=== PATIENT | male | born 1980 | race Caucasian/White ===

== ENCOUNTER 2021-05-01 05:22 | Inpatient (IN) ==
[2021-05-01] MEDS ORDERED: SODIUM CHLORIDE 0.9% 2,000 ML IV STA (06:11)
[2021-05-01] MEDS ORDERED: ONDANSETRON 4 MG/2 ML VIAL IV STA (06:11)
[2021-05-01] MEDS ORDERED: HYDROmorphone 2 MG/1 ML VIAL IV STA (06:11)
[2021-05-01] MEDS ORDERED: LEVOFLOXACIN INJ 500 MG/100 ML PREMIX IV ONE (07:01)
[2021-05-01] MEDS ORDERED: metroNIDAZOLE INJ 500 MG/100 ML PREMIX IV ONE (07:01)
[2021-05-01] MEDS ORDERED: propofoL 200 MG/20 ML VIAL IV ONE (07:55)
[2021-05-01] MEDS ORDERED: fentaNYL 100 MCG/2 ML VIAL ONE (07:55)
[2021-05-01] MEDS ORDERED: ROCURONIUM 50 MG/5 ML VIAL IV ONE (07:55)
[2021-05-01] MEDS ORDERED: LIDOCAINE 2% 5 ML VIAL ONE (07:55)
[2021-05-01] MEDS ORDERED: BUPIVACAINE MPF 0.25% 30 ML VIAL ONE (07:55)
[2021-05-01] MEDS ORDERED: MIDAZOLAM 2 MG/2 ML VIAL ONE (07:55)
[2021-05-01] MEDS ORDERED: SUCCINYLCHOLINE 200 MG/10 ML VIAL ONE (07:55)
[2021-05-01] MEDS ORDERED: LIDOCAINE 1%/EPI INJ 20 ML VIAL ONE (07:56)
[2021-05-01] MEDS: LACTATED RINGERS 1,000 ML IV SCH (09:15)
[2021-05-01 09:29] LABS: Basophils % 0.2 % (0.0-0.8); Eosinophils # 0.2 10*3/uL (0.0-0.87); Eosinophils % 1.4 % (0.00-10.9); Hematocrit 46.4 VOL% (42.0-52.0); Hemoglobin 15.3 GM/DL (14.0-18.0); Immature Granulocytes % 0.3 %; Immature Granulocytes Absolute 0.04 #; Lymphocytes # 2.4 10*3/uL (1.4-4.0); Mean Corpuscular Volume 91.7 FL (87-102); Mean Platelet Volume 10.6 FL (9.6-12.0); Monocytes % 6.5 % (1.7-12.7); Neutrophils % 73.6 % (38.7-73.9); Platelet Count 297 T/CUMM (130-400); Red Blood Count 5.06 MC/CUMM (3.8-5.5); Red Cell Distribution Width 13.7 % (9.3-17.3); White Blood Count 13.2 T/CUMM (4-12)
[2021-05-01 09:48] LABS: Alanine Aminotransferase 26 U/L (16-61); Albumin 3.1 G/DL (3.4-5.0); Alkaline Phosphatase 45 U/L (45-117); Aspartate Amino Transferase 12 U/L (0-37); Bilirubin,Total < 0.39 MG/DL (0.2-1.0); Blood Urea Nitrogen 9 MG/DL (7-18); Carbon Dioxide 26 MMOL/L (21-32); Estimated Glom Filtration Rate 160 ML/MIN; Glucose 85 MG/DL (74-106); Osmolality,Calculated 272.7 MOS/KG (273-304); Potassium 4.3 MMOL/L (3.5-5.1); Sodium 138 MMOL/L (136-145); Total Protein 6.8 G/DL (6.4-8.2)
[2021-05-01] MEDS ORDERED: SEVOFLURANE 1 UNIT/15 MINUTE INH ONE ×7 (09:55→11:42)
[2021-05-01] MEDS ORDERED: DEXAMETHASONE 4 MG/1 ML VIAL ONE (09:55)
[2021-05-01] MEDS ORDERED: ONDANSETRON 4 MG/2 ML VIAL ONE (09:55)
[2021-05-01] MEDS ORDERED: ACETAMINOPHEN INJ 1,000 MG/100 ML VIAL IV ONE (10:03)
[2021-05-01] MEDS ORDERED: GLYCOPYRROLATE 0.4 MG/2 ML VIAL ONE (11:42)
[2021-05-01] MEDS ORDERED: NEOSTIGMINE 10 MG/10 ML VIAL ONE (11:42)
[2021-05-01] MEDS ORDERED: ONDANSETRON 4 MG/2 ML VIAL IV PRN ×2 (11:49→12:17)
[2021-05-01] MEDS ORDERED: HYDROmorphone 2 MG/1 ML VIAL ONE (12:16)
[2021-05-01] MEDS: HYDROmorphone 2 MG/1 ML VIAL IV PRN ×3 (12:19→12:29)
[2021-05-01 12:33] LABS: Bilirubin,Urine Negative (Negative); Blood, Urine Negative (Negative); Glucose,Urine (UA) Negative (Negative); Ketones,Urine Negative (Negative); Mucus,Urine Moderate /LPF (Occasional); Nitrite,Urine Negative (Negative); Protein,Urine 30 MG/DL; RBC,Urine 1 /HPF (0-4); Squamous Epithelial Cell,Urine Occasional /HPF (0-10); Urine Appearance CLEAR (Clear); Urine Color Yellow (Yellow); Urine Specific Gravity > 1.035 (1.001-1.035); Urine Urobilinogen < 2.0 EU/DL (0.2-1.0)
[2021-05-01] MEDS: DEXTROSE 5% LACTATED RINGERS 1,000 ML IV SCH ×2 (14:14→20:17)
[2021-05-01] MEDS: MORPHINE 4 MG/1 ML VIAL IV PRN ×3 (14:14→22:24)
[2021-05-02] MEDS: MORPHINE 4 MG/1 ML VIAL IV PRN ×4 (03:10→19:57)
[2021-05-02 04:57] LABS: Basophils % 0.1 % (0.0-0.8); Eosinophils # 0.1 10*3/uL (0.0-0.87); Eosinophils % 0.4 % (0.00-10.9); Hematocrit 40.8 VOL% (42.0-52.0); Hemoglobin 13.6 GM/DL (14.0-18.0); Immature Granulocytes % 0.3 %; Immature Granulocytes Absolute 0.04 #; Lymphocytes # 1.6 10*3/uL (1.4-4.0); Lymphocytes % 10.5 % (21.2-54.2); Mean Corpuscular HGB Conc 33.3 GM/DL (32-36); Mean Corpuscular Volume 90.5 FL (87-102); Mean Platelet Volume 10.6 FL (9.6-12.0); Neutrophils % 83.7 % (38.7-73.9); Platelet Count 288 T/CUMM (130-400); Red Blood Count 4.51 MC/CUMM (3.8-5.5); Red Cell Distribution Width 13.6 % (9.3-17.3); White Blood Count 14.8 T/CUMM (4-12)
[2021-05-02 05:46] LABS: Albumin 3.1 G/DL (3.4-5.0); Bilirubin,Total 1.1 MG/DL (0.2-1.0); Osmolality,Calculated 278.3 MOS/KG (273-304); Potassium 3.5 MMOL/L (3.5-5.1); Total Protein 6.6 G/DL (6.4-8.2)
[2021-05-02] MEDS: ENOXAPARIN 40 MG/0.4 ML SYRINGE SUBCUT SCH (06:11)
[2021-05-02] MEDS: DEXTROSE 5% LACTATED RINGERS 1,000 ML IV SCH ×3 (06:11→20:01)
[2021-05-02] MEDS: PANTOPRAZOLE 40 MG TABLET PO SCH (08:50)
[2021-05-02] MEDS: levETIRAcetam 500 MG TABLET PO SCH (08:51)
[2021-05-02] MEDS: LACTATED RINGERS 1,000 ML IV SCH (08:52)
[2021-05-03] MEDS: MORPHINE 4 MG/1 ML VIAL IV PRN ×5 (01:06→22:33)
[2021-05-03] MEDS: DEXTROSE 5% LACTATED RINGERS 1,000 ML IV SCH ×3 (03:08→20:42)
[2021-05-03] MEDS: ENOXAPARIN 40 MG/0.4 ML SYRINGE SUBCUT SCH (04:50)
[2021-05-03] MEDS: LACTATED RINGERS 1,000 ML IV SCH (09:18)
[2021-05-03] MEDS ORDERED: MAGNESIUM HYDROXIDE SUSP 30 ML UDCUP PO ONE (09:22)
[2021-05-03] MEDS: levETIRAcetam 500 MG TABLET PO SCH (09:26)
[2021-05-03] MEDS: PANTOPRAZOLE 40 MG TABLET PO SCH (09:26)
[2021-05-04] MEDS: MORPHINE 4 MG/1 ML VIAL IV PRN ×3 (02:57→11:48)
[2021-05-04] MEDS: ENOXAPARIN 40 MG/0.4 ML SYRINGE SUBCUT SCH (05:04)
[2021-05-04] MEDS: DEXTROSE 5% LACTATED RINGERS 1,000 ML IV SCH (05:05)
[2021-05-04] MEDS: levETIRAcetam 500 MG TABLET PO SCH (08:59)
[2021-05-04] MEDS: LACTATED RINGERS 1,000 ML IV SCH (08:59)
[2021-05-04] MEDS: PANTOPRAZOLE 40 MG TABLET PO SCH (08:59)
[2021-05-04 11:42] VITALS: BP 167/99
== END 2021-05-04 15:40 | disposition home or self-care (01) | DRG 337 ==
LOC: EDUNIT# → EDBD → N.ED 05:22 → N.3E 11:49
PROVIDERS: ADMIT Surgery; ATTEND Surgery

== ENCOUNTER 2021-07-20 13:58 | Inpatient (IN) ==
[2021-07-20] MEDS ORDERED: ONDANSETRON 4 MG/2 ML VIAL IV STA (14:13)
[2021-07-20] MEDS ORDERED: SODIUM CHLORIDE 0.9% 1,000 ML IV STA (14:13)
[2021-07-20] MEDS ORDERED: PANTOPRAZOLE 40 MG VIAL IV STA (14:13)
[2021-07-20 15:04] LABS: Basophils # 0.1 10*3/uL (0.0-0.2); Basophils % 0.3 % (0.0-0.8); Eosinophils # 0.2 10*3/uL (0.0-0.87); Eosinophils % 1.4 % (0.00-10.9); Hematocrit 46.5 VOL% (42.0-52.0); Hemoglobin 15.1 GM/DL (14.0-18.0); Immature Granulocytes % 0.3 %; Immature Granulocytes Absolute 0.05 #; Lymphocytes # 1.4 10*3/uL (1.4-4.0); Mean Corpuscular HGB Conc 32.5 GM/DL (32-36); Mean Corpuscular Volume 92.3 FL (87-102); Mean Platelet Volume 10.7 FL (9.6-12.0); Monocytes % 9.6 % (1.7-12.7); Neutrophils % 79.4 % (38.7-73.9); Platelet Count 271 T/CUMM (130-400); Red Blood Count 5.04 MC/CUMM (3.8-5.5); Red Cell Distribution Width 14.6 % (9.3-17.3); White Blood Count 15.2 T/CUMM (4-12)
[2021-07-20 15:18] LABS: PT Patient Result 11.4 SECS (10.5-12.0)
[2021-07-20 15:33] LABS: Alanine Aminotransferase 11 U/L (16-61); Albumin 2.9 G/DL (3.4-5.0); Alkaline Phosphatase 47 U/L (45-117); Aspartate Amino Transferase 7 U/L (0-37); Bilirubin,Total < 0.39 MG/DL (0.20-1.00); Blood Urea Nitrogen 59 MG/DL (7-18); Calcium 7.2 MG/DL (8.5-10.1); Carbon Dioxide 13 MMOL/L (21-32); Estimated Glom Filtration Rate 7 ML/MIN; Glucose 103 MG/DL (74-106); Osmolality,Calculated 282.4 MOS/KG (273-304); Potassium 3.9 MMOL/L (3.5-5.1); Sodium 133 MMOL/L (136-145); Total Protein 6.9 G/DL (6.4-8.2)
[2021-07-20] MEDS ORDERED: MORPHINE 2 MG/1 ML SYRINGE IV STA (17:13)
[2021-07-20] MEDS ORDERED: MORPHINE 2 MG/1 ML SYRINGE ONE (17:16)
[2021-07-20] MEDS ORDERED: GLUCAGON 1 MG VIAL IM PRN (18:05)
[2021-07-20] MEDS ORDERED: ONDANSETRON 4 MG/2 ML VIAL IV PRN (18:05)
[2021-07-20] MEDS ORDERED: ACETAMINOPHEN 325 MG TABLET PO PRN (18:05)
[2021-07-20] MEDS ORDERED: DEXTROSE 50% 25 GM/50 ML VIAL IV PRN (18:05)
[2021-07-20] MEDS ORDERED: NICOTINE 21 MG/24 HR PATCH TRANSDERM PRN (18:17)
[2021-07-20] MEDS: GABAPENTIN 400 MG CAPSULE PO SCH (21:27)
[2021-07-20] MEDS: SODIUM BICARB INJ 100 MEQ in SODIUM CHLORIDE 0.9% 1,000 ML IV SCH (21:28)
[2021-07-20] MEDS ORDERED: INFLUENZA VIRUS VACCINE 0.5 ML SYRINGE IM ONE (23:34)
[2021-07-21 05:40] LABS: Barbiturates Screen,Urine Negative (Negative); Benzodiazepines Screen,Urine Negative (Negative); Cannabinoid Screen,Urine Negative (Negative); Opiate Screen,Urine Negative (Negative); Phencyclidine Screen,Urine Negative (Negative)
[2021-07-21 05:41] LABS: Bilirubin,Urine Negative (Negative); Blood, Urine Small mg/dL (Negative); Glucose,Urine (UA) Negative (Negative); Ketones,Urine Negative (Negative); Mucus,Urine Occasional /LPF (Occasional); Nitrite,Urine Negative (Negative); Protein,Urine 30 MG/DL; Squamous Epithelial Cell,Urine Occasional /HPF (0-10); Urine Appearance Slightly Hazy (Clear); Urine Color Yellow (Yellow); Urine Specific Gravity 1.014 (1.001-1.035); Urine Urobilinogen < 2.0 EU/DL (0.2-1.0)
[2021-07-21] MEDS: SODIUM BICARB INJ 100 MEQ in SODIUM CHLORIDE 0.9% 1,000 ML IV SCH (05:44)
[2021-07-21 06:13] LABS: Basophils # 0.1 10*3/uL (0.0-0.2); Basophils % 0.5 % (0.0-0.8); Eosinophils # 0.3 10*3/uL (0.0-0.87); Eosinophils % 2.1 % (0.00-10.9); Hematocrit 41.1 VOL% (42.0-52.0); Hemoglobin 13.4 GM/DL (14.0-18.0); Immature Granulocytes % 0.5 %; Immature Granulocytes Absolute 0.07 #; Lymphocytes % 15.1 % (21.2-54.2); Mean Corpuscular HGB Conc 32.6 GM/DL (32-36); Mean Corpuscular Volume 93.6 FL (87-102); Monocytes % 10.5 % (1.7-12.7); Neutrophils % 71.3 % (38.7-73.9); Platelet Count 236 T/CUMM (130-400); Red Blood Count 4.39 MC/CUMM (3.8-5.5); Red Cell Distribution Width 14.6 % (9.3-17.3); White Blood Count 13.3 T/CUMM (4-12)
[2021-07-21 06:29] LABS: Calcium 7.7 MG/DL (8.5-10.1); Osmolality,Calculated 293.7 MOS/KG (273-304); Potassium 3.9 MMOL/L (3.5-5.1); Risk Ratio 4.97; Thyroid Stimulating Hormone 0.419 uIU/ml (0.358-3.74); VLDL Cholesterol 59.2 MG/DL
[2021-07-21] MEDS: GABAPENTIN 400 MG CAPSULE PO SCH ×4 (09:37→20:48)
[2021-07-21] MEDS: PANTOPRAZOLE 40 MG TABLET PO SCH (09:37)
[2021-07-21] MEDS: LORazepam 0.5 MG TABLET PO PRN ×2 (09:37→20:48)
[2021-07-21] MEDS: SODIUM BICARB INJ 100 MEQ in SODIUM CHLORIDE 0.45% 1,000 ML IV SCH ×2 (12:21→22:31)
[2021-07-21] MEDS ORDERED: PHENYLEPH/MINERAL OIL/PETROLAT 57 GM TUBE TOP PRN (17:51)
[2021-07-21] MEDS ORDERED: HYDROCORTISONE 2.5% RECTAL CREAM 30 GM TUBE TOP PRN (18:32)
[2021-07-21] MEDS: PHENYLEPHRINE 0.25% SUPP RECTAL SCH (20:48)
[2021-07-22 05:35] LABS: Basophils # 0.1 10*3/uL (0.0-0.2); Basophils % 0.7 % (0.0-0.8); Eosinophils # 0.3 10*3/uL (0.0-0.87); Eosinophils % 2.8 % (0.00-10.9); Hemoglobin 13.2 GM/DL (14.0-18.0); Immature Granulocytes % 0.2 %; Immature Granulocytes Absolute 0.02 #; Lymphocytes # 2.2 10*3/uL (1.4-4.0); Lymphocytes % 20.2 % (21.2-54.2); Mean Corpuscular Volume 91.7 FL (87-102); Mean Platelet Volume 11.1 FL (9.6-12.0); Monocytes % 13.5 % (1.7-12.7); Neutrophils % 62.6 % (38.7-73.9); Platelet Count 247 T/CUMM (130-400); Red Blood Count 4.36 MC/CUMM (3.8-5.5); Red Cell Distribution Width 14.1 % (9.3-17.3)
[2021-07-22 05:55] LABS: Calcium 8.6 MG/DL (8.5-10.1); Osmolality,Calculated 293.1 MOS/KG (273-304); Potassium 3.6 MMOL/L (3.5-5.1)
[2021-07-22] MEDS: BISACODYL 5 MG TABLET PO SCH ×2 (07:30→16:27)
[2021-07-22] MEDS: PHENYLEPHRINE 0.25% SUPP RECTAL SCH ×2 (08:24→20:15)
[2021-07-22] MEDS: GABAPENTIN 400 MG CAPSULE PO SCH ×4 (08:25→20:15)
[2021-07-22] MEDS: PANTOPRAZOLE 40 MG TABLET PO SCH (08:25)
[2021-07-22] MEDS: LORazepam 0.5 MG TABLET PO PRN ×2 (08:25→17:11)
[2021-07-22] MEDS ORDERED: metroNIDAZOLE INJ 500 MG/100 ML PREMIX IV ONE (08:59)
[2021-07-22] MEDS ORDERED: LEVOFLOXACIN INJ 500 MG/100 ML PREMIX IV ONE (08:59)
[2021-07-22] MEDS: SODIUM BICARB INJ 50 MEQ in SODIUM CHLORIDE 0.45% 1,000 ML IV SCH (10:20)
[2021-07-22] MEDS ORDERED: fentaNYL 100 MCG/2 ML VIAL ONE (10:45)
[2021-07-22] MEDS ORDERED: LIDOCAINE 2% 5 ML VIAL ONE ×2 (10:45→12:13)
[2021-07-22] MEDS ORDERED: SEVOFLURANE 1 UNIT/15 MINUTE INH ONE (10:45)
[2021-07-22] MEDS ORDERED: MIDAZOLAM 2 MG/2 ML VIAL ONE (10:45)
[2021-07-22] MEDS ORDERED: propofoL 200 MG/20 ML VIAL IV ONE ×2 (10:45→12:13)
[2021-07-22] MEDS ORDERED: LIDOCAINE 1%/EPI INJ 20 ML VIAL ONE (10:54)
[2021-07-22] MEDS ORDERED: BUPIVACAINE MPF 0.25% 30 ML VIAL ONE (10:54)
[2021-07-22] MEDS ORDERED: LACTATED RINGERS 1,000 ML IV SCH (12:00)
[2021-07-22] MEDS ORDERED: HYDROmorphone 2 MG/1 ML VIAL IV PRN (13:41)
[2021-07-22] MEDS: HYDROmorphone 2 MG/1 ML VIAL IV PRN ×3 (15:00→20:06)
[2021-07-22] MEDS ORDERED: POLYETHYLENE GLYCOL 3350/ELECTROLYTES 4,000 ML BOTTLE PO ONE (18:00)
[2021-07-22] MEDS: POLYETHYLENE GLYCOL POWDER 17 GM PACK PO SCH (20:15)
[2021-07-22] MEDS ORDERED: MAGNESIUM CITRATE 300 ML BOTTLE PO ONE (21:00)
[2021-07-23] MEDS: HYDROmorphone 2 MG/1 ML VIAL IV PRN ×6 (00:01→20:27)
[2021-07-23] MEDS: LORazepam 0.5 MG TABLET PO PRN ×4 (00:01→19:20)
[2021-07-23] MEDS: SODIUM BICARB INJ 50 MEQ in SODIUM CHLORIDE 0.45% 1,000 ML IV SCH ×2 (06:35→15:57)
[2021-07-23 08:27] LABS: Basophils # 0.1 10*3/uL (0.0-0.2); Basophils % 0.7 % (0.0-0.8); Eosinophils # 0.5 10*3/uL (0.0-0.87); Eosinophils % 5.6 % (0.00-10.9); Hematocrit 39.7 VOL% (42.0-52.0); Hemoglobin 13.1 GM/DL (14.0-18.0); Immature Granulocytes % 0.3 %; Immature Granulocytes Absolute 0.03 #; Lymphocytes # 1.9 10*3/uL (1.4-4.0); Lymphocytes % 21.7 % (21.2-54.2); Mean Corpuscular Volume 91.7 FL (87-102); Mean Platelet Volume 10.5 FL (9.6-12.0); Monocytes % 10.3 % (1.7-12.7); Neutrophils % 61.4 % (38.7-73.9); Platelet Count 265 T/CUMM (130-400); Red Blood Count 4.33 MC/CUMM (3.8-5.5)
[2021-07-23] MEDS: GABAPENTIN 400 MG CAPSULE PO SCH ×4 (08:35→20:32)
[2021-07-23] MEDS: POLYETHYLENE GLYCOL POWDER 17 GM PACK PO SCH ×3 (08:35→20:33)
[2021-07-23] MEDS: PANTOPRAZOLE 40 MG TABLET PO SCH (08:35)
[2021-07-23] MEDS: TAMSULOSIN 0.4 MG CAPSULE PO SCH ×2 (08:35→20:33)
[2021-07-23] MEDS: PHENYLEPHRINE 0.25% SUPP RECTAL SCH (09:31)
[2021-07-24] MEDS: HYDROmorphone 2 MG/1 ML VIAL IV PRN ×2 (00:03→03:58)
[2021-07-24] MEDS: LORazepam 0.5 MG TABLET PO PRN (00:05)
[2021-07-24] MEDS: SODIUM BICARB INJ 50 MEQ in SODIUM CHLORIDE 0.45% 1,000 ML IV SCH ×2 (05:44→06:59)
[2021-07-24] MEDS: TAMSULOSIN 0.4 MG CAPSULE PO SCH (08:42)
[2021-07-24] MEDS: PANTOPRAZOLE 40 MG TABLET PO SCH (08:42)
[2021-07-24] MEDS: GABAPENTIN 400 MG CAPSULE PO SCH (08:42)
[2021-07-24] MEDS: POLYETHYLENE GLYCOL POWDER 17 GM PACK PO SCH (08:42)
[2021-07-24 11:30] VITALS: BP 157/90
[2021-07-24] MEDS ORDERED: DOCUSATE SODIUM 100 MG CAPSULE PO SCH (21:00)
== END 2021-07-24 12:11 | disposition home or self-care (01) | DRG 347 ==
LOC: EDUNIT# → EDBD → N.ED 13:58 → SUATTDRO 18:05 → N.EDINP 18:05 → N.5E 19:47
PROVIDERS: ADMIT Internal Medicine; ATTEND Hospitalist

== ENCOUNTER 2021-10-20 16:49 | Observation (INO) ==
[2021-10-20] MEDS ORDERED: SODIUM CHLORIDE 0.9% 1,000 ML IV STA (20:04)
[2021-10-20] MEDS ORDERED: ONDANSETRON 4 MG/2 ML VIAL IV STA (20:04)
[2021-10-20] MEDS ORDERED: HYDROmorphone 2 MG/1 ML VIAL IV STA ×2 (20:04→23:02)
[2021-10-20 20:42] LABS: Basophils # 0.1 10*3/uL (0.0-0.2); Basophils % 1.1 % (0.0-0.8); Eosinophils # 0.4 10*3/uL (0.0-0.87); Eosinophils % 4.3 % (0.00-10.9); Hematocrit 48.8 VOL% (42.0-52.0); Hemoglobin 16.2 GM/DL (14.0-18.0); Immature Granulocytes % 0.2 %; Immature Granulocytes Absolute 0.02 #; Lymphocytes # 2.8 10*3/uL (1.4-4.0); Lymphocytes % 34.2 % (21.2-54.2); Mean Corpuscular HGB Conc 33.2 GM/DL (32-36); Mean Corpuscular Volume 89.9 FL (87-102); Mean Platelet Volume 10.2 FL (9.6-12.0); Monocytes % 8.1 % (1.7-12.7); Neutrophils % 52.1 % (38.7-73.9); Platelet Count 288 T/CUMM (130-400); Red Blood Count 5.43 MC/CUMM (3.8-5.5); Red Cell Distribution Width 13.9 % (9.3-17.3); White Blood Count 8.1 T/CUMM (4-12)
[2021-10-20 20:59] LABS: Alanine Aminotransferase 31 U/L (16-61); Albumin 3.7 G/DL (3.4-5.0); Alkaline Phosphatase 56 U/L (45-117); Aspartate Amino Transferase 11 U/L (0-37); Bilirubin,Total < 0.39 MG/DL (0.20-1.00); Blood Urea Nitrogen 7 MG/DL (7-18); Calcium 9.4 MG/DL (8.5-10.1); Carbon Dioxide 24 MMOL/L (21-32); Estimated Glom Filtration Rate 161 ML/MIN; Glucose 85 MG/DL (74-106); Osmolality,Calculated 275.4 MOS/KG (273-304); Potassium 3.8 MMOL/L (3.5-5.1); Sodium 140 MMOL/L (136-145); Total Protein 7.7 G/DL (6.4-8.2)
[2021-10-20 22:04] LABS: Bilirubin,Urine Negative (Negative); Blood, Urine Negative (Negative); Glucose,Urine (UA) Negative (Negative); Ketones,Urine Negative (Negative); Mucus,Urine Occasional /LPF (Occasional); Nitrite,Urine Negative (Negative); Protein,Urine Negative; RBC,Urine <1 /HPF (0-4); Squamous Epithelial Cell,Urine Occasional /HPF (0-10); Urine Appearance CLEAR (Clear); Urine Color Straw (Yellow); Urine Specific Gravity > 1.060 (1.001-1.035); Urine Urobilinogen < 2.0 EU/DL (<2.0)
[2021-10-20] MEDS ORDERED: ONDANSETRON 4 MG/2 ML VIAL IV ONE (23:02)
[2021-10-20] MEDS ORDERED: ACETAMINOPHEN 325 MG TABLET PO PRN (23:42)
[2021-10-20] MEDS ORDERED: ONDANSETRON 4 MG/2 ML VIAL IV PRN (23:42)
[2021-10-20] MEDS ORDERED: GABAPENTIN 600 MG TABLET PO PRN (23:45)
[2021-10-21] MEDS: LACTATED RINGERS 1,000 ML IV SCH ×2 (01:22→07:45)
[2021-10-21] MEDS: HYDROmorphone 2 MG/1 ML VIAL IV PRN ×2 (03:57→08:34)
[2021-10-21 03:58] LABS: Basophils # 0.1 10*3/uL (0.0-0.2); Basophils % 1.1 % (0.0-0.8); Eosinophils # 0.4 10*3/uL (0.0-0.87); Eosinophils % 5.5 % (0.00-10.9); Hematocrit 47.7 VOL% (42.0-52.0); Hemoglobin 15.6 GM/DL (14.0-18.0); Immature Granulocytes % 0.3 %; Immature Granulocytes Absolute 0.02 #; Lymphocytes # 2.7 10*3/uL (1.4-4.0); Lymphocytes % 37.8 % (21.2-54.2); Mean Corpuscular HGB Conc 32.7 GM/DL (32-36); Mean Corpuscular Volume 91.4 FL (87-102); Mean Platelet Volume 10.4 FL (9.6-12.0); Monocytes % 7.5 % (1.7-12.7); Neutrophils % 47.8 % (38.7-73.9); Platelet Count 279 T/CUMM (130-400); Red Blood Count 5.22 MC/CUMM (3.8-5.5); Red Cell Distribution Width 14.1 % (9.3-17.3); White Blood Count 7.2 T/CUMM (4-12)
[2021-10-21 04:40] LABS: Alanine Aminotransferase 27 U/L (16-61); Albumin 3.3 G/DL (3.4-5.0); Alkaline Phosphatase 48 U/L (45-117); Aspartate Amino Transferase 10 U/L (0-37); Bilirubin,Total < 0.39 MG/DL (0.20-1.00); Blood Urea Nitrogen 6 MG/DL (7-18); Calcium 8.9 MG/DL (8.5-10.1); Carbon Dioxide 23 MMOL/L (21-32); Estimated Glom Filtration Rate 161 ML/MIN; Glucose 84 MG/DL (74-106); Osmolality,Calculated 277.3 MOS/KG (273-304); Potassium 3.9 MMOL/L (3.5-5.1); Sodium 141 MMOL/L (136-145); Total Protein 7.2 G/DL (6.4-8.2)
[2021-10-21] MEDS ORDERED: PANTOPRAZOLE 40 MG TABLET PO SCH (09:00)
[2021-10-21] MEDS ORDERED: oxyCODONE/ACETAMINOPHEN 5-325 MG TABLET PO STA (11:34)
[2021-10-21] MEDS ORDERED: KETOROLAC 30 MG/1 ML VIAL IV STA (11:35)
[2021-10-21 12:34] VITALS: BP 130/93
== END 2021-10-21 12:27 | disposition home or self-care (01) ==
LOC: N.EDINP 16:49 → N.ED 16:49 → N.EDINP 10-21 12:33
PROVIDERS: ADMIT Surgery; ATTEND Surgery